=== PATIENT | male | born 1960 | race American Indian/Alaskan Native ===

== ENCOUNTER 2021-11-11 10:48 | Outpatient (CLI) | payer OTHER ==
--- NOTE | 2021-11-11 13:46 | Cat Scan Report ---
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 TECHNIQUE: Thin section axial imaging performed from the lung apices through the costophrenic sulci u sing low-dose technique. All CT scans at this location are performed using CT dose reduction for ALAR A by means of automated exposure control. COMPARISON: None available. FINDINGS: PERIFISSURAL NODULE(S): None. BENIGN NODULE(S) with Specific Calcifications or Fat: None. SOLID NODULE(S): None. PARTIALLY SOLID NODULE(S): None. NONSOLID / GROUND GLASS NODULE(S): None. ENDOBRONCHIAL NODULE(S): None. LUNGS: No acute air space or interstitial disease. Upper lobe predominant mild emphysema. PLEURA: No pneumothorax. No significant pleural effusion. HEART: No significant abnormality. CORONARY ARTERY CALCIFICATION: Mild. MEDIASTINUM / JENS: No significant abnormality. THORACIC AORTA: No significant abnormality. ADDITIONAL FINDINGS: None. UPPER ABDOMEN: Evaluation is limited due to low-dose technique. Calcifications noted within the pancr eas with mild pancreatic duct dilation suggesting sequela of chronic pancreatitis. SKELETAL SYSTEM: No significant abnormality. IMPRESSION: 1. Most Suspicious Nodule (if any): No pulmonary nodule. 2. Lung-RADS Category 1: NEGATIVE - Recommendation: Continue annual low dose CT (LDCT) screening in 12 months. - Please see below for additional details. 3. Multiple calcifications within the pancreas and mild pancreatic duct dilation which suggest chroni c pancreatitis Lung-RADS Version 1.1 Assessment Categories (2019) CATEGORY 0: INCOMPLETE - Incomplete exam or Prior chest CT examination(s) being located for comparison - Recommendation: Additional lung cancer screening CT images and/or comparison to prior chest CT exa minations is needed CATEGORY 1: NEGATIVE - No lung nodules OR benign nodules - Recommendation: Continue annual low dose CT (LDCT) screening in 12 months. CATEGORY 2: BENIGN APPEARANCE OR BEHAVIOR - PERIFISSURAL nodule: < 10.0 mm - SOLID nodule: Prior nodule < 6.0 mm or New nodule < 4.0 mm - PARTIALLY SOLID nodule: < 6.0 mm - NONSOLID nodule: < 30 mm or > 30 mm and unchanged or slow growth (< 1.5 mm since last exam) - CATEGORY 3 or 4 nodules unchanged for >= 3 months - Recommendation: Continue annual LDCT screening in 12 months. CATEGORY 3: PROBABLY BENIGN - SOLID nodule: 6.0-7.9 mm at Baseline OR New solid nodule between 4.0-5.9 mm. - PARTIALLY SOLID nodule: >= 6.0 mm with solid component < 6.0 mm OR new < 6.0 mm total diameter - NONSOLID nodule: >= [address] or new - Recommendation: Follow-up LDCT in 6 months. CATEGORY 4A: SUSPICIOUS - SOLID nodule: 8.0-14.9 mm OR Growing < 8.0 mm OR New 6-7.9 mm. - PARTIALLY SOLID nodule: >= 6.0 mm with solid component 6.0-7.9 mm OR New/Growing solid component < 4.0 mm - ENDOBRONCHIAL nodule - Recommendation: Follow-up with LDCT in 3 months; or, PET/CT may be used if there is a solid compon ent to the nodule measuring 8.0 mm or larger. CATEGORY 4B: VERY SUSPICIOUS - Prior SOLID nodule: >= 15.0 mm OR New/Growing component and >= 8.0 mm - PARTIALLY SOLID nodule: solid component >= 8.0 mm OR New/Growing solid component >= 4.0 mm - Recommendation: Follow-up with CT chest with contrast, PET/CT, and or tissue sampling depending on comorbidities and probability of malignancy as determined by the referring clinician. PET/CT may be used when there is a solid component of at least 8.0 mm. For new large nodules that develop on an an nual repeat screening CT, a 1 month LDCT may be recommended to address potentially infectious or infl ammatory conditions. CATEGORY 4X: VERY SUSPICIOUS - CATEGORY 3 or 4 nodules with additional features or imaging findings that increases the suspicion of malignancy. - Recommendation: Follow-up with CT chest with contrast, PET/CT, and or tissue sampling depending on comorbidities and probability of malignancy as determined by the referring clinician. PET/CT may be used when there is a solid component of at least 8.0 mm. For new large nodules that develop on an an nual repeat screening CT, a 1 month LDCT may be recommended to address potentially infectious or infl ammatory conditions. Signer Name: Ang Colorado DO Signed: 11/11/2021 1:41 PM Workstation Name: [id number]
== END 2021-11-11 10:49 | disposition home or self-care (01) ==
LOC: CT 10:48
PROVIDERS: ATTEND Internal Medicine
DX: Z12.2 Encounter for screening for malignant neoplasm of respiratory organs (principal); Z87.891 Personal history of nicotine dependence
CPT/HCPCS: 71271